=== PATIENT | female | born 1995 | race Caucasian/White ===

== ENCOUNTER 2016-05-04 23:25 | Emergency (ER) | payer BC ==
[~2016-05-04] VITALS: Ht 160 cm; Wt 70.1 kg
[~2016-05-04 23:25] MED LIST: BCPILLS PO; METH10CA5 PO; NITR-5 PO
[2016-05-04 23:28] VITALS: BP 105/67; PULSE 110; TEMP 37.1; O2SAT 98; Ht 160 cm; Wt 70.1 kg
[2016-05-04] MEDS ORDERED: PENICILLIN HOME PACK 250MG (4)BTL PO ONE (23:45)
[2016-05-04] MEDS ORDERED: PENI500T2 PO (23:46)
[2016-05-04] MEDS ORDERED: METH1TAB15 PO (23:57)
[2016-05-04] MEDS ORDERED: MULT-506 PO (23:57)
--- NOTE | 2016-05-05 04:51 | EMERGENCY ROOM VISIT NOTE ---
History First contact with patient: 23:35 Chief Complaint: ILLNESS Stated Complaint: PAINFUL SWALLOWING,LABORED BREATHING,FEVER History of Present Illness The patient is a 20 year old female who presents to the Emergency Room with complaints of sore throat, fever and bodyaches for the past day. No temperature was taken. Patient denies chest pain, dyspnea, neck stiffness, earache, vomiting, diarrhea. No recent antibiotics. She is a nanny. Review of Systems See HPI for pertinent positives & negatives. A total of 10 systems reviewed and were otherwise negative. Past Medical/Surgical History none Social History Smoking Status: Never Smoker Smokeless Tobacco Use: No Alcohol Use: none Drug Use: none Current/Historical Medications Scheduled Methylphenidate Hcl (Methylphenidate Hcl Er), 20 MG PO DAILY Multivitamin (Multivitamin), 1 TAB PO DAILY Penicillin V Potassium (Veetids), 500 MG PO TID Allergies Coded Allergies: Nickel (Verified Allergy, Mild, HIVES, 05/04/16) Uncoded Allergies: CATS (Allergy, Intermediate, DIFFICULTY BREATHING, 03/13/14) Physical Exam Vital Signs Date Time Temp Pulse Resp B/P Pulse Ox O2 Delivery O2 Flow Rate FiO2 05/04/16 23:28 37.1 110 16 105/67 98 Room Air Pain Rating (0-10): 5.0 Physical Exam VITALS: Vitals are noted on the nurse's note and reviewed by myself. Vital signs stable. GENERAL: Pleasant female, in no acute distress, nondiaphoretic, well-developed well-nourished. SKIN: The skin was without rashes, erythema, edema, or bruising. There is no tenting of the skin. Capillary reflex less than 2 seconds. HEAD: Normocephalic atraumatic. EARS: External auditory canals clear, tympanic membranes pearly lobato without erythema or effusion bilaterally. EYES: Pupils equal round and reactive to light and accommodation. Conjunctivae without injection, sclerae without icterus. Extraocular movements intact. NOSE: Patent, turbinates without inflammation or discharge. No sinus tenderness. MOUTH: Mucous membranes moist. Tonsils are enlarged. Pharynx with erythema and exudate. Uvula midline. Airway patent. Tongue does not deviate. NECK: Supple without nuchal rigidity. Submandibular lymphadenopathy. No thyromegaly. Cervical spine is nontender. No JVD. HEART: Regular rate and rhythm without murmurs gallops or rubs. LUNGS: Clear to auscultation bilaterally without wheezes, rales or rhonchi. No dullness to percussion. No retractions or accessory muscle use. ABDOMEN: Positive bowel sounds x 4. Normal tympanic percussion. Soft, nontender, without masses or organomegaly. Jansen sign negative. No guarding or rebound tenderness. MUSCULOSKELETAL: No muscle atrophy, erythema, or edema noted. NEURO: Patient was alert and oriented to person place and time. Normal sensation to light and sharp touch. No focal neurological deficits. Medical Decision & Procedures Laboratory Results Date/Time Source Procedure Growth Status 05/04/16 00:00 Throat Group A Streptococcus Screen - Final SPECIMEN POSITIVE FOR GROUP A BETA ST... Complete 05/04/16 00:00 Throat Group A Streptococcus Screen (RUI) - Final Complete Medications Administered Medications (Trade) Dose Ordered Sig/Beto Route Start Time Stop Time Status Last Admin Dose Admin Penicillin V Potassium (Pen-Vk 250MG Home Pack) 1 homepack UD ONCE PO 05/04/16 23:45 05/04/16 23:46 DC 05/04/16 23:57 1 HOMEPACK ED Course Prior records/ancillary studies reviewed. Triage Nursing notes reviewed. Additional history obtained from family The patient's history was concerning for a sore throat. Differential diagnosis: Etiologies such as viral syndrome, tonsillitis, streptococcal pharyngitis, mononucleosis, peritonsillar abscess, retropharyngeal abscess, otitis, pneumonia , influenza, as well as others were entertained. ER treatment provided: Penicillin On reassessment the patient felt better. Diagnostics interpreted by me: The labs revealed positive strep test This appears to be consistent with strep pharyngitis. Patient was started on penicillin. She is advised to change her toothbrush in 48 hours. She is advised to avoid being around kids or other immunocompromised people until 24 hours fever free and after being 48 hours on antibiotics. She is advised to follow-up family care in a few days or here in the ER sooner for high fevers, lethargy, neck stiffness, worsening signs or symptoms or as needed. Patient no signs of meningitis. She is well-appearing. No signs of abscess on clinical exam. By the evaluation outlined above emergent etiologies such as peritonsillar abscess, retropharyngeal abscess, otitis, pneumonia, meningitis, urinary tract infection, sepsis, bacteremia, as well as others were deemed relatively unlikely. The pt informed about the findings as listed above. All questions were answered and pleased with the treatment. Return instructions were outlined and the patient was discharged in stable condition. Outpatient prescription management: Penicillin Referral: The patient was referred back to their primary care physician for follow-up in 2 to 3 days for a recheck of the current condition. Medical Decision As above Impression Primary Impression: Strep pharyngitis Departure Information Dispostion Home / Self-Care Condition GOOD Prescriptions Penicillin V Potassium (VEETIDS) 500 Mg Tab 500 MG PO TID for 10 Days, #30 TAB Prov: Darlene Gutierrez ., LESLIE 05/04/16 Forms WORK / SCHOOL INSTRUCTIONS, HOME CARE DOCUMENTATION FORM, IMPORTANT VISIT INFORMATION Patient Instructions Strep Throat, [facility] Additional Instructions Penicillin 500 m tablet 3 times a day for 10 days.Any medication can cause an allergic reaction, stop the pills immediately and return to the ER for rash, hives, breathing difficulties, or swelling. Acetaminophen(Tylenol) may be used for fever or pain. Use 1000mg every six hours as needed. Avoid using more than 3000mg in a 24 hour period. (AND/OR) Ibuprofen(Motrin, Advil) may be used for fever or pain. Use 600mg every six hours as needed. Take with food. Avoid using more than 2400mg in a 24 hour period. Do not use 2400mg per day for more than three consecutive days without physician direction. Prolonged inappropriate use can lead to stomach upset or ulcers. Afrin nasal spray: 2-3 sprays to each nostril twice daily as needed for congestion. Do not use for more than 3-4 days because it can lead to worsening rebound congestion. Pseudoephedrine(Sudaphed): 30-60mg every 6 hours as needed for nasal congestion. Do not take this with other stimulant products or supplements. Rest and drink plenty of fluids. Controlling your fever with Tylenol and Ibuprofen as above will make you feel better. Wash your hands after nose blowing, sneezing, or coughing. Most germs are spread through contact, therefore improper hygiene may result in your close contacts and loved ones becoming ill just like you. Continue current medications. Return to the ER for severe headache, neck stiffness, chest pain, difficulty breathing, fevers, vomiting, worsening of your condition, or as needed. Follow up with your primary physician this week for a recheck of your current condition.
== END 2016-05-04 23:58 | disposition home or self-care (01) ==
LOC: C.EDB 23:26 → C.EDC 23:58
DX: J02.0 Streptococcal pharyngitis (principal)

== ENCOUNTER 2017-06-04 00:18 | Emergency (ER) | payer BC, OTHER ==
[~2017-06-04] VITALS: Ht 160 cm; Wt 70.5 kg
[~2017-06-04 00:18] MED LIST changes: -BCPILLS PO; -METH10CA5 PO; +METH1TAB15 PO; +MULT-506 PO; -NITR-5 PO
[2017-06-04 00:31] VITALS: TEMP 36.7; Ht 160 cm; Wt 70.5 kg
[2017-06-04] MEDS ORDERED: OXYCODONE HCL IR 5 MG TAB (IMMEDIATE RELEASE) PO STA (00:44)
--- NOTE | 2017-06-04 00:50 | EMERGENCY ROOM VISIT NOTE ---
History Report prepared by Guillermo: Coretta Shin Under the Supervision of: Dr. Andry Julien M.D. First contact with patient: 00:34 Chief Complaint: BACK PAIN Stated Complaint: BACK PAIN FROM FALL ON ICY STAIRS History of Present Illness The patient is a 21 year old female who presents to the Emergency Room with complaints of constant back pain beginning a couple hours ago. The patient states she fell down icy stairs and hit her lower back a couple hours ago. She reports her pain shoots to her hips. She reports increased pain with walking and sitting. The patient took ibuprofen with minimal relief. She denies hitting her head, loss of consciousness, or loss of bowels/urine. The patient denies any chance of . Source of History: patient Onset: a couple hours ago Position: back (lower) Quality: other (radiates to hips) Timing: constant Modifying Factors (Worsening): other (walking/sitting) Associated Symptoms: + back pain, No LOC Review of Systems See HPI for pertinent positives & negatives. A total of 6 systems reviewed and were otherwise negative. Family History Patient reports no known family medical history. Social History Smoking Status: Never Smoker Alcohol Use: none Drug Use: none Current/Historical Medications Scheduled Methylphenidate Hcl (Methylphenidate Hcl Er), 20 MG PO DAILY Multivitamin (Multivitamin), 1 TAB PO DAILY Scheduled PRN Cyclobenzaprine Hcl (Flexeril), 10 MG PO TID PRN for Muscle Spasms Allergies Coded Allergies: Nickel (Verified Allergy, Mild, HIVES, 05/04/16) Uncoded Allergies: CATS (Allergy, Intermediate, DIFFICULTY BREATHING, 03/13/14) Physical Exam Vital Signs Date Time Temp Pulse Resp B/P (MAP) Pulse Ox O2 Delivery O2 Flow Rate FiO2 06/04/17 01:33 89 20 117/85 100 06/04/17 00:31 36.7 94 20 103/53 100 Room Air Physical Exam GENERAL: Patient is well appearing and in no acute distress. NECK: No stridor, no adenopathy, no meningismus, trachea is midline. LUNGS: No dyspnea. Clear to auscultation and equal bilaterally. No wheeze, no rhonchi. HEART: Regular rate and rhythm. No murmurs, rubs, gallops appreciated. ABDOMEN: Soft, nontender, bowel sounds positive, no masses appreciated, no peritonitis. BACK: Tenderness to palpation of mid lumbar spine, no stepoffs. No CVA tenderness EXTREMITIES: Normal motion all extremities, no cyanosis, no edema. NEUROLOGIC: Alert and oriented, no acute motor or sensory deficits, no focal weakness, cranial nerves grossly intact. SKIN: No rash, no jaundice, no diaphoresis. Medical Decision & Procedures ER Provider Diagnostic Interpretation: Radiology results and stated below per my review Five view lumbar spine: straightening of lumbar lordosis, no fracture or dislocation appreciated. Medications Administered Medications (Trade) Dose Ordered Sig/Beto Route Start Time Stop Time Status Last Admin Dose Admin Oxycodone HCl (Roxicodone Immediate Rel Tab) 5 mg NOW STAT PO 06/04/17 00:44 06/04/17 00:51 DC 06/04/17 00:55 5 MG Oxycodone HCl (Roxicodone Immediate Rel 5MG Home Pack) 1 homepack UD ONCE PO 06/04/17 01:15 06/04/17 01:16 DC 06/04/17 01:31 1 HOMEPACK ED Course 0040: The patient was evaluated in room B3B. A complete history and physical exam was performed. 0113: I updated the patient on her test results. She is comfortable with discharge. 0128: Reevaluated the patient. Discussed results and discharge instructions: She verbalized understanding and agreement. The patient is ready for discharge. Medical Decision Differential: Musculoskeletal, Disc Herniation, Fracture, Cord Compression, Sciatica, Cauda Equina, amongst other pathologies entertained. 21 yr old female arrives with acute low back pain s/p fall on ice. No other injuries. Neuro intact and able to walk. Lumbar imaging with some lumbar straightening but no acute fractures/etc. She looks well otherwise. Limited Oxy IR to go for acute pain and will give Flexeril Rx if need be for continued discomfort. Risks/restrictions of these medications reviewed with her. Discussed symptoms requiring return and to follow with PCP. Medication Reconcilliation Current Medication List: was personally reviewed by me Blood Pressure Screening Patient's blood pressure: Normal blood pressure Impression Primary Impression: Acute lumbar back pain Additional Impression: Injury of low back Scribe Attestation The scribe's documentation has been prepared under my direction and personally reviewed by me in its entirety. I confirm that the note above accurately reflects all work, treatment, procedures, and medical decision making performed by me. Departure Information Dispostion Home / Self-Care Prescriptions Cyclobenzaprine Hcl (FLEXERIL) 10 Mg Tab 10 MG PO TID Y for Muscle Spasms, #21 TAB Prov: Andry Julien M.D. 06/04/17 Referrals Coco Roth DO (PCP) Forms HOME CARE DOCUMENTATION FORM, IMPORTANT VISIT INFORMATION Patient Instructions ED Low Back Pain Injury, My [facility] Additional Instructions You have received a narcotic pain medication. These medications may cause drowsiness and should not be used with other sedative medications. Do not drive , drink alcohol, perform dangerous activities, nor make important decisions after taking these medications. [facility] use or inappropriate use may lead to addiction. Problem Qualifiers
[2017-06-04] MEDS ORDERED: OXYCODONE IR HOME PACK PO ONE (01:15)
[2017-06-04] MEDS ORDERED: CYCL10TA6 PO (01:16)
[2017-06-04 01:33] VITALS: BP 117/85; PULSE 89; O2SAT 100
--- NOTE | 2017-06-04 06:31 | DIAGNOSTIC IMAGING REPORT ---
L-SPINE MIN 4 VIEWS ROUTINE CLINICAL HISTORY: Lumbar spine pain status post trauma COMPARISON STUDY: No previous studies for comparison. FINDINGS: No fractures or subluxations are visualized. There is a minimal spinal curvature. IMPRESSION: No fractures or subluxations identified. Electronically signed by: Zach Benjamin M.D. 06/04/2017 6:30 AM Dictated Date/Time: 06/04/2017 6:29 AM
== END 2017-06-04 01:35 | disposition home or self-care (01) ==
LOC: C.EDB 00:19
DX: S39.92XA Unspecified injury of lower back, initial encounter (principal); W00.1XXA Fall from stairs and steps due to ice and snow, initial encounter; Z91.048 Other nonmedicinal substance allergy status

== ENCOUNTER 2023-03-20 07:50 | Inpatient (IN) ==
--- NOTE | 2023-03-20 08:06 | History & Physical Report ---
Date of Service March 20, 2023 Assessment & Plan (1) Dichorionic diamniotic twin : (2) Encounter for induction of labor: Plan Twin di/di at 38 weeks here for IOL Pitocin AROM when able Epidural when requested Double setting reviewed check BSG Q 4h Admission and Anticipated Discharge Date Admission Date: March 20, 2023 History of Present Illness Primary Care Provider: GEORGI PCP 27 y/o weeks NINI: 04/03/22. Here for induction of labor. Complications with this include twin di/di. GDN on insulin, RH- . Germania received at 10/2Has been attending OB appointments regularly. Currently taking no medications. GBS, Rubella immune, BTG: O neg Contractions: none. Fluid or Blood loss: none Movement: active FHR baseline 130, moderate variability, accelerations present, decelerations absent Lab Results OB Labs: Blood Type O Negative 03/02/18 Antibody Screen NEGATIVE 03/02/18 Hemoglobin 11.4 g/dl (12.0-16.0) L 02/22/23 Hematocrit 32.3 % (37.0-47.0) L 02/22/23 Mean Corpuscular Volume 91.2 fL (80.0-100.0) 02/22/23 Platelet Count 229 K/uL (130-400) 02/22/23 OB Optional Labs: No Data to Display Labs Reviewed: Initial OB Labs 08/14/2022 Blood Type & RH o neg - 09/10/2020 Antibody Screen negative HCT/HGB 12.4/37.5 Platelets 337 Hep C IgG 13yrs+ Old NEGATIVE Pap Test 05/2020 Chlamydia NEGATIVE Gonorrhea negative Rubella immune RPR non reactive Urine Culture/[id number] organisms/mL. mixed bacterial species. HBsAg negative HIV negative MCV 86.8 Ultrasound06/27/22 Allergies Allergy/AdvReac Type Severity Reaction Status Date / Time nickel Allergy Mild HIVES Verified 03/19/23 10:39 cat dander Allergy Difficulty Verified 03/20/23 11:24 Breathing Home Medications Medication Instructions Recorded Confirmed Type doxylamine succinate 25 mg tablet 25 mg PO HS nausea 01/02/23 03/20/23 History (Unisom (doxylamine)) [id number] 1 tab PO DAILY 01/02/23 03/20/23 History [] pyridoxine (vitamin B6) 25 mg 25 mg PO DAILY 01/02/23 03/19/23 History tablet insulin aspart U-100 100 unit/mL See Rx Instructions .Route 01/14/23 03/20/23 Rx (3 mL) subcutaneous pen (Novolog .COMPLEX #30 mL FlexPen U-100 Insulin aspart) aspirin 81 mg tablet,delayed 81 mg PO DAILY 02/22/23 03/20/23 History release ferrous sulfate 325 mg (65 mg 325 mg PO DAILY 02/22/23 03/20/23 History iron) tablet insulin detemir U-100 100 unit/mL 42 unit subcut HS 02/22/23 03/20/23 History (3 mL) subcutaneous pen insulin detemir U-100 100 unit/mL 34 unit subcut QAM 02/22/23 03/20/23 History (3 mL) subcutaneous pen (Levemir FlexPen) magnesium oxide 400 mg PO HS 02/22/23 03/20/23 History Past Med/Surg History Medical History Varicella vaccine GERD (gastroesophageal reflux disease) IBS (irritable bowel syndrome) Encounter for anatomic survey ADHD SANDRO (generalized anxiety disorder) Surgical History S/P wisdom tooth extraction Hx of tonsillectomy Family History Mother Colorectal cancer diagnosed at 44 Hypertension Brother Brain cancer Grandmother (Maternal) Stroke Other Diabetes Denies family history of Ovarian cancer Breast cancer Social History Smoking Status: Never smoker Second Hand Exposure: No; Do You Dip or Chew Tobacco: No; Hx Alcohol Use: No Hx Substance Use: No Preferred Language: Welsh Communication Ability: Effective Visual Impairment: No Limitations Hearing Ability: Normal Emergency Planning And Response Manager Required: No Beliefs That Will Affect Care: None marital status: marital status details: Vic 31 [phone] Current Living Situation: Spouse and Family Current Living Situation Comment: Pt lives with her parents, (Vic) and 1.5 year-old daughter (Laura) current occupational status: unemployed current occupation: Homemaker Other Information That Helps Us Care for You: No Feels Safe at Home: Yes Safety Concerns: Feels Safe At This Time Diet: low carbohydrate and regular Diet Comment: Gestational Diabetes Gender Identity: Female Assistive Devices: Glasses Review of Systems Review of Systems: All systems reviewed & are unremarkable except as noted in HPI & below Physical Exam Physical Exam: General: patient resting comfortably, NAD, non-toxic in appearance, AA&O x 4, answers questions appropriately. Skin: warm, dry, intact Heart: +S1/S2, regular, no m/r/g Lungs: equal air entry bilaterally, no rales/rhonchi/wheezes Abd: +BS, soft, NT/ND, uterine fundus firm at umbilicus Neuro: nonfocal, patient AA&O x 4, speech intact, no facial droop, moving all extremities on command. Genitourinary: OB Exam Abdomen: + vertex (vtx/vtx confirmed by ultrasound today), + estimated weight (6 pounds each) and + irregular contractions Manual OB Exam: + cervical dilation 4 cm, + cervical effacement 80% and + station -1 OB Exam Monitor Tracing: + external FHT monitor used, + external uterine monitor used, + category I and + normal FHT variability Supervising Physician Co-Signing Physician Notes Resident Physician Supervision Note: I interviewed and examined the patient. Discussed with Dr. Marcelino Salamanca and agree with findings and plan as documented in the note. Any exceptions or clarifications are listed here: 27yo @ 38 0/7, di/di twins, GDM on insulin, Rh negative. Desires vaginal delivery - induction of labor for twins. We have discussed the plan for delivery - double set-up in OR, with intention of attempting vaginal delivery, as both babies are cephalic. We discussed the possibility of the need for an emergent section of Baby B, patient is agreeable with this is the need arises. Questions answered. Documented By: ASUNCION Hernandez DO Resident Activity Tracking Resident Involvement: Resident Care Provided Care Provided: OB Delivery (1) Dichorionic diamniotic twin Trimester: third trimester Qualified Code(s): O30.043 - Twin , dichorionic/diamniotic, third trimester
[2023-03-20] MEDS ORDERED: DEXTROSE 5% 1,000 ML IV PRN (08:09)
[2023-03-20] MEDS ORDERED: LIDOCAINE 1% LOCAL 20 ML VIAL INFIL PRN (08:09)
[2023-03-20] MEDS ORDERED: OXYTOCIN 30 UNITS/NSS 30 UNITS/500 ML BAG IV PRN ×2 (08:09)
[2023-03-20] MEDS ORDERED: INSULIN REGULAR 250 UNITS in SODIUM CHLORIDE 0.9% 247.5 ML IV PRN (08:09)
[2023-03-20] MEDS ORDERED: SODIUM CHLORIDE 0.9% 1,000 ML IV PRN (08:09)
[2023-03-20] MEDS ORDERED: DEXTROSE 50% 50 ML SYRINGE IV PRN (08:09)
[2023-03-20] MEDS: LACTATED RINGER'S 1,000 ML IV PRN ×4 (08:55→22:28)
[2023-03-20 09:02] LABS: Hematocrit (blood only) 36.4 % (37.0-47.0); Hemoglobin 12.8 g/dl (12.0-16.0); Mean Corpuscular Hemoglobin 32.2 pg (25.0-34.0); Mean Corpuscular Hgb Conc 35.2 g/dL (32.0-36.0); Mean Corpuscular Volume 91.7 fL (80.0-100.0); Mean Platelet Volume 9.3 fL (9.4-12.4); Platelet Count 199 K/uL (130-400); RDW Coefficient of Variation 14.2 % (11.5-14.5); RDW Standard Deviation 47.8 fL (36.4-46.3); Red Blood Count 3.97 M/uL (4.20-5.40); White Blood Count 9.03 K/ul (4.8-10.8)
--- NOTE | 2023-03-20 09:25 | Labor Progress Brief Note ---
Date of Service March 20, 2023 Subjective Reason For Note: Other Current Pain Level(1-10): 0 AROM for clear fluid pitocin induction begun per unit protocol epidural analgesia when requested anticipate vaginal births Assessment & Plan Admission and Anticipated Discharge Date Admission Date: March 20, 2023 Results & Data Vital Signs (Past 12 Hours) Vital Signs Temp Pulse Resp BP O2 Del Method 03/20/23 08:14 97.9 F 18 Room Air 03/20/23 08:03 111 H 124/79
[2023-03-20] MEDS ORDERED: ePHEDrine sulfate 50 MG/ML AMP ONE (12:22)
[2023-03-20] MEDS ORDERED: SODIUM CHLORIDE 0.9% PF INJ 10 ML VIAL ONE (12:22)
[2023-03-20] MEDS ORDERED: fentaNYL citrate PF 100 MCG/2 ML VIAL ONE (12:22)
[2023-03-20] MEDS ORDERED: LIDOCAINE 2%/EPINEPHRINE 1:200,000 20 ML PF ONE (12:23)
[2023-03-20] MEDS ORDERED: BUPIVACAINE 0.25% PF 30 ML VIAL ONE (12:23)
[2023-03-20] MEDS ORDERED: fentANYL 2 MCG/ML BUPIVacaine 0.125%-NSS 100ML BAG ONE (12:23)
[2023-03-20] MEDS ORDERED: fentaNYL citrate PF 100 MCG/2 ML VIAL EPI PRN (12:25)
[2023-03-20] MEDS ORDERED: diphenhydrAMINE 50 MG/ML VIAL IV PRN (12:25)
[2023-03-20] MEDS ORDERED: ePHEDrine sulfate 50 MG/ML AMP IV PRN (12:25)
[2023-03-20] MEDS ORDERED: LIDOCAINE 2%/EPINEPHRINE 1:200,000 20 ML PF EPI STA (12:25)
[2023-03-20] MEDS ORDERED: fentaNYL citrate PF 100 MCG/2 ML VIAL EPI STA (12:25)
[2023-03-20] MEDS ORDERED: LIDOCAINE 2% MPF LOCAL 5 ML VIAL EPI PRN (12:25)
[2023-03-20] MEDS ORDERED: NALOXONE HCL 0.4 MG/1 ML VIAL/CARP IV PRN (12:25)
[2023-03-20] MEDS ORDERED: NALBUPHINE HCL 5 MG in SYRINGE 0 ML IV PRN (12:25)
[2023-03-20] MEDS ORDERED: BUPIVACAINE 0.25% PF 30 ML VIAL EPI PRN (12:25)
[2023-03-20] MEDS ORDERED: BUPIVACAINE 0.25% PF 30 ML VIAL EPI STA (12:25)
[2023-03-20] MEDS ORDERED: NALOXONE HCL 1 MG in SODIUM CHLORIDE 0.9% 1,000 ML IV PRN (12:25)
[2023-03-20] MEDS ORDERED: SODIUM CHLORIDE 0.9% PF INJ 10 ML VIAL EPI PRN (12:25)
[2023-03-20] MEDS ORDERED: SODIUM CHLORIDE 0.9% PF INJ 10 ML VIAL EPI STA (12:25)
[2023-03-20] MEDS ORDERED: ROPIVACAINE 0.5% PF 5 MG/ML 20 ML VIAL EPI PRN (12:25)
--- NOTE | 2023-03-20 12:28 | Anesthesiology Consultation ---
Date of Service March 20, 2023 Assessment & Plan Chart Review Chart Review: Acceptable Risk for Labor Epidural Consults Requested none History Height/Weight Height: 5 ft 3 in Weight: 98.883 kg Allergies Allergy/AdvReac Type Severity Reaction Status Date / Time nickel Allergy Mild HIVES Verified 03/19/23 10:39 cat dander Allergy Difficulty Verified 03/20/23 11:24 Breathing Medications Home Medications Medication Instructions Recorded Confirmed Last Taken doxylamine succinate 25 mg tablet 25 mg PO HS nausea 01/02/23 03/20/23 03/19/23 (Unisom (doxylamine)) [id number] 1 tab PO DAILY 01/02/23 03/20/23 03/19/23 23:00 [] pyridoxine (vitamin B6) 25 mg 25 mg PO DAILY 01/02/23 03/19/23 03/04/23 23:00 tablet insulin aspart U-100 100 unit/mL See Rx Instructions .Route 01/14/23 03/20/23 03/20/23 07:00 (3 mL) subcutaneous pen (Novolog .COMPLEX #30 mL 24 units FlexPen U-100 Insulin aspart) aspirin 81 mg tablet,delayed 81 mg PO DAILY 02/22/23 03/20/23 03/19/23 23:00 release ferrous sulfate 325 mg (65 mg 325 mg PO DAILY 02/22/23 03/20/23 03/19/23 23:00 iron) tablet insulin detemir U-100 100 unit/mL 42 unit subcut HS 02/22/23 03/20/23 03/19/23 23:00 (3 mL) subcutaneous pen insulin detemir U-100 100 unit/mL 34 unit subcut QAM 02/22/23 03/20/23 03/19/23 09:30 (3 mL) subcutaneous pen (Levemir 38 units FlexPen) magnesium oxide 400 mg PO HS 02/22/23 03/20/23 03/19/23 23:00 Active Medications Generic Name Dose Route Start Last Admin Trade Name Freq PRN Reason Stop Dose Admin Oxytocin 30 units in 500 mls @ 13 mls/hr 03/20/23 08:09 03/20/23 12:15 Pitocin 30 Units/Nss IV 03/22/23 08:08 0.78 units/hr .Q24H PRN 13 mls/hr Labor Induction/Augmentation Titration Protocol 0.78 UNITS/HR Lactated Ringer's 1,000 mls @ 125 mls/hr 03/20/23 08:09 03/20/23 12:19 Lr IV 03/22/23 08:08 999 mls/hr .Q8H PRN Infusion L&D Protocol Protocol Past Medical History Medical History Varicella vaccine GERD (gastroesophageal reflux disease) IBS (irritable bowel syndrome) Encounter for anatomic survey ADHD SANDRO (generalized anxiety disorder) Past Family History Family History Mother Colorectal cancer diagnosed at 44 Hypertension Brother Brain cancer Grandmother (Maternal) Stroke Other Diabetes Denies family history of Ovarian cancer Breast cancer Past Surgical History Surgical History S/P wisdom tooth extraction Hx of tonsillectomy Social History Smoking Status: Never smoker Do You Dip or Chew Tobacco: No Hx Alcohol Use: No Hx Substance Use: No substance use type: does not use Physical Exam Vital Signs Last Vital Signs Temp 36.8 C 03/20/23 11:00 Pulse 86 03/20/23 12:04 Resp 16 03/20/23 11:30 BP 119/65 03/20/23 12:04 O2 Del Method Room Air 03/20/23 08:14 Genitourinary OB Exam Abdomen: + vertex (vtx/vtx confirmed by ultrasound today), + estimated weight (6 pounds each) and + irregular contractions Manual OB Exam: + cervical dilation + 4 cm, + cervical effacement + 80% and + station + -1 OB Exam Monitor Tracing: + external FHT monitor used, + external uterine monitor used, + category I and + normal FHT variability Testing Laboratory Results 03/20/23 08:37 Blood Type O Negative 03/20/23 08:37 Antibody Screen NEGATIVE 03/20/23 08:37 03/20/23 03/20/23 09:06 09:00 POC Glucose 91 100 H
[2023-03-20] MEDS: fentANYL 2 MCG/ML BUPIVacaine 0.125%-NSS 100ML BAG EPI PRN (19:11)
--- NOTE | 2023-03-20 20:11 | Labor Progress Brief Note ---
Date of Service March 20, 2023 Subjective Labor continues. Comfortable with epidural. FHT Cat 1 of both babies. Ctx pattern have improved to 2-3min at this point, pitocin at 25. SVE 7-8/90/-1. Feeling more pressure, no urge to push at this time. Assessment & Plan Admission and Anticipated Discharge Date Admission Date: March 20, 2023 Results & Data Vital Signs (Past 12 Hours) Vital Signs Temp Pulse Resp BP Pulse Ox O2 Del Method 03/20/23 20:08 100 H 98 03/20/23 20:03 97 03/20/23 20:03 107 H 03/20/23 20:03 106 H 101/57 L 03/20/23 19:58 99 H 98 03/20/23 19:53 112 H 98 03/20/23 19:48 110 H 125/68 97 03/20/23 19:43 108 H 97 03/20/23 19:38 115 H 97 03/20/23 19:33 104 H 96 03/20/23 19:32 111 H 113/67 03/20/23 19:28 114 H 97 03/20/23 19:23 106 H 97 03/20/23 19:19 115 H 117/64 03/20/23 19:18 112 H 97 03/20/23 19:13 110 H 97 03/20/23 19:08 115 H 97 03/20/23 19:03 106 H 97 03/20/23 19:02 102 H 132/61 03/20/23 19:00 18 03/20/23 19:00 18 03/20/23 18:58 103 H 97 03/20/23 18:53 116 H 96 03/20/23 18:48 108 H 97 03/20/23 18:47 112 H 134/70 03/20/23 18:43 115 H 97 03/20/23 18:38 115 H 97 03/20/23 18:33 97 03/20/23 18:33 116 H 03/20/23 18:33 109 H 135/67 91 03/20/23 18:30 18 03/20/23 18:30 18 03/20/23 18:28 111 H 97 03/20/23 18:23 110 H 97 03/20/23 18:18 97 03/20/23 18:18 113 H 03/20/23 18:18 110 H 127/64 03/20/23 18:17 110 H 126/66 03/20/23 18:13 112 H 97 03/20/23 18:08 106 H 97 03/20/23 18:03 107 H 99 03/20/23 18:02 98 H 122/70 03/20/23 18:00 16 03/20/23 18:00 16 03/20/23 17:58 103 H 97 03/20/23 17:53 108 H 98 03/20/23 17:48 98 03/20/23 17:48 100 H 03/20/23 17:48 104 H 119/66 03/20/23 17:43 107 H 96 03/20/23 17:38 104 H 99 03/20/23 17:33 99 H 117/67 98 03/20/23 17:30 18 03/20/23 17:30 18 03/20/23 17:28 103 H 98 03/20/23 17:23 105 H 98 03/20/23 17:18 97 H 97 03/20/23 17:17 102 H 119/67 03/20/23 17:13 98 H 97 03/20/23 17:08 93 H 98 03/20/23 17:03 97 H 98 03/20/23 17:02 95 H 115/67 03/20/23 17:00 18 03/20/23 17:00 36.8 C 18 03/20/23 17:00 18 03/20/23 17:00 36.8 C 18 03/20/23 16:58 97 H 98 03/20/23 16:53 102 H 98 03/20/23 16:48 93 H 99 03/20/23 16:47 98 H 118/69 03/20/23 16:43 95 H 100 03/20/23 16:38 106 H 100 03/20/23 16:33 100 03/20/23 16:33 92 H 03/20/23 16:33 108 H 129/65 03/20/23 16:30 16 03/20/23 16:30 16 03/20/23 16:28 102 H 100 03/20/23 16:23 98 H 100 03/20/23 16:18 85 100 03/20/23 16:17 99 H 112/62 03/20/23 16:13 96 H 100 03/20/23 16:08 86 100 03/20/23 16:03 92 H 100 03/20/23 16:02 93 H 113/60 03/20/23 16:00 18 03/20/23 16:00 18 03/20/23 15:58 100 H 100 03/20/23 15:53 89 100 03/20/23 15:48 100 03/20/23 15:48 88 03/20/23 15:48 90 110/59 L 03/20/23 15:43 36.6 C 101 H 18 100 03/20/23 15:38 90 100 03/20/23 15:33 83 100 03/20/23 15:32 90 105/61 03/20/23 15:30 82 18 106/58 L 03/20/23 15:28 100 03/20/23 15:28 86 03/20/23 15:28 87 109/59 L 03/20/23 15:26 93 H 103/57 L 03/20/23 15:24 88 99/51 L 03/20/23 15:23 84 100 03/20/23 15:22 104 H 03/20/23 15:22 87 104/51 L 90 03/20/23 15:20 93 H 112/57 L 03/20/23 15:18 109 H 116/56 L 100 03/20/23 15:16 112 H 118/59 L 03/20/23 15:14 100 H 118/63 03/20/23 15:13 98 H 100 03/20/23 15:12 97 H 109/57 L 03/20/23 15:10 101 H 117/61 03/20/23 15:08 102 H 114/59 L 100 03/20/23 15:06 90 112/55 L 03/20/23 15:04 96 H 114/58 L 03/20/23 15:03 92 H 100 03/20/23 15:02 114 H 112/63 03/20/23 15:00 110 H 18 121/70 03/20/23 14:58 100 03/20/23 14:58 95 H 03/20/23 14:58 87 118/62 03/20/23 14:56 100 H 118/62 03/20/23 14:54 93 H 115/59 L 03/20/23 14:53 92 H 100 03/20/23 14:52 100 H 112/55 L 03/20/23 14:50 96 H 118/61 03/20/23 14:48 100 03/20/23 14:48 91 H 03/20/23 14:48 101 H 119/62 03/20/23 14:46 102 H 122/60 03/20/23 14:44 97 H 117/62 03/20/23 14:43 102 H 100 03/20/23 14:42 100 H 113/60 03/20/23 14:40 99 H 112/59 L 03/20/23 14:38 96 H 116/61 100 03/20/23 14:36 105 H 116/63 03/20/23 14:34 100 H 111/58 L 03/20/23 14:33 99 H 100 03/20/23 14:32 103 H 107/57 L 03/20/23 14:30 100 H 18 104/58 L 03/20/23 14:28 100 03/20/23 14:28 93 H 03/20/23 14:28 107 H 102/58 L 03/20/23 14:26 102 H 106/58 L 03/20/23 14:24 102 H 108/57 L 03/20/23 14:23 103 H 100 03/20/23 14:22 86 108/58 L 03/20/23 14:20 107 H 110/55 L 03/20/23 14:18 100 03/20/23 14:18 99 H 03/20/23 14:18 101 H 114/57 L 03/20/23 14:16 103 H 112/60 03/20/23 14:14 94 H 112/56 L 03/20/23 14:13 100 H 100 03/20/23 14:12 97 H 103/57 L 03/20/23 14:10 99 H 113/56 L 03/20/23 14:08 96 H 118/56 L 100 03/20/23 14:06 105 H 92/50 L 03/20/23 14:03 93 H 97 03/20/23 14:02 101 H 93/52 L 03/20/23 13:58 100 03/20/23 13:58 100 H 03/20/23 13:58 93 H 110/58 L 03/20/23 13:55 100 H 113/65 03/20/23 13:53 95 H 98 03/20/23 13:52 98 H 104/56 L 03/20/23 13:50 78 57/29 L 03/20/23 13:48 70 98 03/20/23 13:43 99 03/20/23 13:43 111 H 03/20/23 13:43 103 H 116/62 03/20/23 13:38 96 H 98 03/20/23 13:33 100 H 97 03/20/23 13:30 16 03/20/23 13:30 16 03/20/23 13:28 108 H 99 03/20/23 13:27 88 130/73 03/20/23 13:25 36.7 C 104 H 18 129/70 03/20/23 13:23 98 03/20/23 13:23 97 H 03/20/23 13:23 108 H 132/67 03/20/23 13:21 114 H 132/61 03/20/23 13:19 96 H 133/78 03/20/23 13:18 97 H 98 03/20/23 13:17 108 H 128/68 03/20/23 13:15 101 H 139/74 03/20/23 13:13 96 H 136/75 98 03/20/23 13:11 106 H 129/78 03/20/23 13:09 102 H 129/70 03/20/23 13:08 109 H 98 03/20/23 13:07 98 H 143/67 H 03/20/23 13:06 97 H 141/65 H 03/20/23 13:03 104 H 159/82 H 99 03/20/23 13:01 92 H 119/72 03/20/23 13:00 18 03/20/23 13:00 18 03/20/23 12:59 91 H 132/83 03/20/23 12:58 88 98 03/20/23 12:57 88 135/80 03/20/23 12:55 97 H 132/63 03/20/23 12:53 99 03/20/23 12:53 85 03/20/23 12:53 90 132/75 03/20/23 12:51 88 142/85 H 03/20/23 12:49 95 H 128/83 03/20/23 12:48 86 99 03/20/23 12:47 91 H 127/81 03/20/23 12:45 90 143/83 H 03/20/23 12:43 92 H 146/83 H 100 03/20/23 12:38 95 H 99 03/20/23 12:33 90 99 03/20/23 12:30 18 03/20/23 12:30 18 03/20/23 12:04 86 119/65 03/20/23 11:30 16 03/20/23 11:30 16 03/20/23 11:03 99 H 133/72 03/20/23 11:00 18 03/20/23 11:00 18 03/20/23 11:00 18 03/20/23 11:00 36.8 C 18 03/20/23 10:30 20 03/20/23 10:30 20 03/20/23 10:18 90 133/81 03/20/23 10:00 18 03/20/23 10:00 18 03/20/23 08:14 36.6 C 18 Room Air Coding Level of Care Code None
[2023-03-20] MEDS ORDERED: SODIUM CHLORIDE 0.9% 250 ML IV PRN (21:02)
--- NOTE | 2023-03-20 23:14 | Labor Progress Brief Note ---
Date of Service March 20, 2023 Subjective Not feeling pressure or urge to push. FHT Cat 1, both babies [place] Q 2-3 SVE rim/100/0 Assessment & Plan Admission and Anticipated Discharge Date Admission Date: March 20, 2023 Results & Data Vital Signs (Past 12 Hours) Vital Signs Temp Pulse Resp BP Pulse Ox 03/20/23 23:09 110 H 85 L 03/20/23 23:08 103 H 98 03/20/23 23:03 105 H 96 03/20/23 23:02 105 H 103/54 L 03/20/23 22:58 107 H 98 03/20/23 22:53 100 H 98 03/20/23 22:48 103 H 98 03/20/23 22:47 104 H 95/50 L 03/20/23 22:43 101 H 99 03/20/23 22:38 104 H 98 03/20/23 22:34 104 H 104/52 L 03/20/23 22:33 98 03/20/23 22:33 104 H 03/20/23 22:33 102 H 103/51 L 03/20/23 22:28 120 H 97 03/20/23 22:23 106 H 98 03/20/23 22:18 97 03/20/23 22:18 104 H 03/20/23 22:18 120 H 135/66 03/20/23 22:13 109 H 98 03/20/23 22:08 97 H 97 03/20/23 22:03 102 H 96 03/20/23 22:02 107 H 118/57 L 03/20/23 21:58 119 H 96 03/20/23 21:53 100 H 99 03/20/23 21:48 114 H 97 03/20/23 21:47 112 H 120/58 L 03/20/23 21:43 108 H 98 03/20/23 21:38 116 H 99 03/20/23 21:33 121 H 98 03/20/23 21:28 121 H 99 03/20/23 21:23 101 H 96 03/20/23 21:18 102 H 113/62 97 03/20/23 21:13 95 H 96 03/20/23 21:08 99 H 98 03/20/23 21:03 98 H 98 03/20/23 21:02 101 H 118/59 L 03/20/23 21:00 18 03/20/23 21:00 36.6 C 18 03/20/23 20:58 101 H 98 03/20/23 20:53 104 H 99 03/20/23 20:49 101 H 112/56 L 03/20/23 20:48 102 H 99 03/20/23 20:43 95 H 97 03/20/23 20:38 94 H 97 03/20/23 20:34 96 H 104/58 L 03/20/23 20:33 102 H 97 03/20/23 20:28 101 H 98 03/20/23 20:23 94 H 98 03/20/23 20:19 102 H 110/60 03/20/23 20:18 100 H 97 03/20/23 20:13 100 H 97 03/20/23 20:08 100 H 98 03/20/23 20:03 97 03/20/23 20:03 107 H 03/20/23 20:03 106 H 101/57 L 03/20/23 19:58 99 H 98 03/20/23 19:53 112 H 98 03/20/23 19:48 110 H 125/68 97 03/20/23 19:43 108 H 97 03/20/23 19:38 115 H 97 03/20/23 19:33 104 H 96 03/20/23 19:32 111 H 113/67 03/20/23 19:28 114 H 97 03/20/23 19:23 106 H 97 03/20/23 19:19 115 H 117/64 03/20/23 19:18 112 H 97 03/20/23 19:13 110 H 97 03/20/23 19:08 115 H 97 03/20/23 19:05 36.6 C 18 03/20/23 19:03 106 H 97 03/20/23 19:02 36.6 C 102 H 18 132/61 03/20/23 19:00 18 03/20/23 19:00 18 03/20/23 18:58 103 H 97 03/20/23 18:53 116 H 96 03/20/23 18:48 108 H 97 03/20/23 18:47 112 H 134/70 03/20/23 18:43 115 H 97 03/20/23 18:38 115 H 97 12/22/23 18:33 97 03/20/23 18:33 116 H 03/20/23 18:33 109 H 135/67 91 03/20/23 18:30 18 03/20/23 18:30 18 03/20/23 18:28 111 H 97 03/20/23 18:23 110 H 97 03/20/23 18:18 97 03/20/23 18:18 113 H 03/20/23 18:18 110 H 127/64 03/20/23 18:17 110 H 126/66 03/20/23 18:13 112 H 97 03/20/23 18:08 106 H 97 03/20/23 18:03 107 H 99 03/20/23 18:02 98 H 122/70 03/20/23 18:00 16 03/20/23 18:00 16 03/20/23 17:58 103 H 97 03/20/23 17:53 108 H 98 03/20/23 17:48 98 03/20/23 17:48 100 H 03/20/23 17:48 104 H 119/66 03/20/23 17:43 107 H 96 03/20/23 17:38 104 H 99 03/20/23 17:33 99 H 117/67 98 03/20/23 17:30 18 03/20/23 17:30 18 03/20/23 17:28 103 H 98 03/20/23 17:23 105 H 98 03/20/23 17:18 97 H 97 03/20/23 17:17 102 H 119/67 03/20/23 17:13 98 H 97 03/20/23 17:08 93 H 98 03/20/23 17:03 97 H 98 03/20/23 17:02 95 H 115/67 03/20/23 17:00 18 03/20/23 17:00 36.8 C 18 03/20/23 17:00 18 03/20/23 17:00 36.8 C 18 03/20/23 16:58 97 H 98 03/20/23 16:53 102 H 98 03/20/23 16:48 93 H 99 03/20/23 16:47 98 H 118/69 03/20/23 16:43 95 H 100 03/20/23 16:38 106 H 100 03/20/23 16:33 100 03/20/23 16:33 92 H 12/22/23 16:33 108 H 129/65 03/20/23 16:30 16 03/20/23 16:30 16 03/20/23 16:28 102 H 100 03/20/23 16:23 98 H 100 03/20/23 16:18 85 100 03/20/23 16:17 99 H 112/62 03/20/23 16:13 96 H 100 03/20/23 16:08 86 100 03/20/23 16:03 92 H 100 03/20/23 16:02 93 H 113/60 03/20/23 16:00 18 03/20/23 16:00 18 03/20/23 15:58 100 H 100 03/20/23 15:53 89 100 03/20/23 15:48 100 03/20/23 15:48 88 03/20/23 15:48 90 110/59 L 03/20/23 15:43 36.6 C 101 H 18 100 03/20/23 15:38 90 100 03/20/23 15:33 83 100 03/20/23 15:32 90 105/61 03/20/23 15:30 82 18 106/58 L 03/20/23 15:28 100 03/20/23 15:28 86 03/20/23 15:28 87 109/59 L 03/20/23 15:26 93 H 103/57 L 03/20/23 15:24 88 99/51 L 03/20/23 15:23 84 100 03/20/23 15:22 104 H 03/20/23 15:22 87 104/51 L 90 03/20/23 15:20 93 H 112/57 L 03/20/23 15:18 109 H 116/56 L 100 03/20/23 15:16 112 H 118/59 L 03/20/23 15:14 100 H 118/63 03/20/23 15:13 98 H 100 03/20/23 15:12 97 H 109/57 L 03/20/23 15:10 101 H 117/61 03/20/23 15:08 102 H 114/59 L 100 03/20/23 15:06 90 112/55 L 03/20/23 15:04 96 H 114/58 L 03/20/23 15:03 92 H 100 03/20/23 15:02 114 H 112/63 03/20/23 15:00 110 H 18 121/70 03/20/23 14:58 100 03/20/23 14:58 95 H 03/20/23 14:58 87 118/62 03/20/23 14:56 100 H 118/62 03/20/23 14:54 93 H 115/59 L 03/20/23 14:53 92 H 100 03/20/23 14:52 100 H 112/55 L 03/20/23 14:50 96 H 118/61 03/20/23 14:48 100 03/20/23 14:48 91 H 03/20/23 14:48 101 H 119/62 03/20/23 14:46 102 H 122/60 03/20/23 14:44 97 H 117/62 03/20/23 14:43 102 H 100 03/20/23 14:42 100 H 113/60 03/20/23 14:40 99 H 112/59 L 03/20/23 14:38 96 H 116/61 100 03/20/23 14:36 105 H 116/63 03/20/23 14:34 100 H 111/58 L 03/20/23 14:33 99 H 100 03/20/23 14:32 103 H 107/57 L 03/20/23 14:30 100 H 18 104/58 L 03/20/23 14:28 100 03/20/23 14:28 93 H 03/20/23 14:28 107 H 102/58 L 03/20/23 14:26 102 H 106/58 L 03/20/23 14:24 102 H 108/57 L 03/20/23 14:23 103 H 100 03/20/23 14:22 86 108/58 L 03/20/23 14:20 107 H 110/55 L 03/20/23 14:18 100 03/20/23 14:18 99 H 03/20/23 14:18 101 H 114/57 L 03/20/23 14:16 103 H 112/60 03/20/23 14:14 94 H 112/56 L 03/20/23 14:13 100 H 100 03/20/23 14:12 97 H 103/57 L 03/20/23 14:10 99 H 113/56 L 03/20/23 14:08 96 H 118/56 L 100 03/20/23 14:06 105 H 92/50 L 03/20/23 14:03 93 H 97 03/20/23 14:02 101 H 93/52 L 03/20/23 13:58 100 03/20/23 13:58 100 H 03/20/23 13:58 93 H 110/58 L 03/20/23 13:55 100 H 113/65 03/20/23 13:53 95 H 98 03/20/23 13:52 98 H 104/56 L 03/20/23 13:50 78 57/29 L 03/20/23 13:48 70 98 03/20/23 13:43 99 03/20/23 13:43 111 H 03/20/23 13:43 103 H 116/62 03/20/23 13:38 96 H 98 03/20/23 13:33 100 H 97 03/20/23 13:30 16 03/20/23 13:30 16 03/20/23 13:28 108 H 99 03/20/23 13:27 88 130/73 03/20/23 13:25 36.7 C 104 H 18 129/70 03/20/23 13:23 98 03/20/23 13:23 97 H 03/20/23 13:23 108 H 132/67 03/20/23 13:21 114 H 132/61 03/20/23 13:19 96 H 133/78 03/20/23 13:18 97 H 98 03/20/23 13:17 108 H 128/68 03/20/23 13:15 101 H 139/74 03/20/23 13:13 96 H 136/75 98 03/20/23 13:11 106 H 129/78 03/20/23 13:09 102 H 129/70 03/20/23 13:08 109 H 98 03/20/23 13:07 98 H 143/67 H 03/20/23 13:06 97 H 141/65 H 03/20/23 13:03 104 H 159/82 H 99 03/20/23 13:01 92 H 119/72 03/20/23 13:00 18 03/20/23 13:00 18 03/20/23 12:59 91 H 132/83 03/20/23 12:58 88 98 03/20/23 12:57 88 135/80 03/20/23 12:55 97 H 132/63 03/20/23 12:53 99 03/20/23 12:53 85 03/20/23 12:53 90 132/75 03/20/23 12:51 88 142/85 H 03/20/23 12:49 95 H 128/83 03/20/23 12:48 86 99 03/20/23 12:47 91 H 127/81 03/20/23 12:45 90 143/83 H 03/20/23 12:43 92 H 146/83 H 100 03/20/23 12:38 95 H 99 03/20/23 12:33 90 99 03/20/23 12:30 18 03/20/23 12:30 18 03/20/23 12:04 86 119/65 03/20/23 11:30 16 03/20/23 11:30 16 Coding Level of Care Code None
[2023-03-21] MEDS: fentANYL 2 MCG/ML BUPIVacaine 0.125%-NSS 100ML BAG EPI PRN (00:29)
[2023-03-21] MEDS ORDERED: fentaNYL citrate PF 100 MCG/2 ML VIAL ONE (01:38)
[2023-03-21] MEDS ORDERED: OXYTOCIN 10 UNITS/ML VIAL ONE ×3 (01:46)
[2023-03-21] MEDS ORDERED: MoRPHine SULFATE PF 1 MG/ML 10 ML AMP/VIAL ONE (01:50)
[2023-03-21] MEDS ORDERED: AZITHROMYCIN 500 MG in DEXTROSE 5% 250 ML IV ONE (01:58)
[2023-03-21] MEDS ORDERED: MoRPHine SULFATE PF 1 MG/ML 10 ML AMP/VIAL EPI ONE (02:13)
[2023-03-21] MEDS ORDERED: NALBUPHINE HCL 5 MG in SYRINGE 0 ML IV PRN (02:13)
[2023-03-21] MEDS ORDERED: NALOXONE HCL 0.4 MG/1 ML VIAL/CARP IV PRN (02:13)
[2023-03-21] MEDS ORDERED: HYDROmorphone INJ 0.5 MG/0.5 ML SYR IV PRN (02:13)
[2023-03-21] MEDS ORDERED: NALOXONE HCL 0.08 MG in SYRINGE 1.8 ML IV PRN (02:13)
[2023-03-21] MEDS ORDERED: LACTATED RINGER'S 500 ML IV PRN (02:13)
[2023-03-21] MEDS ORDERED: ePHEDrine sulfate 50 MG/ML AMP IV PRN (02:13)
[2023-03-21] MEDS ORDERED: NALOXONE HCL 1 MG in SODIUM CHLORIDE 0.9% 1,000 ML IV PRN (02:13)
[2023-03-21] MEDS ORDERED: diphenhydrAMINE 50 MG/ML VIAL IV PRN ×2 (02:13→20:13)
[2023-03-21] MEDS ORDERED: NO NARCOTICS OR SEDATIVES SCH (02:15)
[2023-03-21] MEDS ORDERED: DC INTRASPINAL MORPHINE SCH (02:15)
[2023-03-21] MEDS ORDERED: SODIUM CHLORIDE 0.9% 1,000 ML IV SCH (02:15)
[2023-03-21 02:48] LABS: Base Excess Cord Venous Blood -4.4 mEq/L (-7.7-1.9); Cord Venous Blood HCO3 22 mmol/L (18.4-26.8); Cord Venous Blood PCO2 45 mmHg (30.4-57.2); Cord Venous Blood PO2 23 mmHg (14.1-43.3); O2 Saturation Cord Venous Bld < 60.0 % (<68)
[2023-03-21 02:49] LABS: Base Excess Cord Arterial Bld -5.2 mEq/L (-9-1.8); CO2 Cord Arterial Blood 46 mmHg (39.1-73.5); HCO3 Cord Arterial Blood 22 mmol/L (19.7-28.5); Oxygen Sat Cord Arterial Blood < 60.0 % (<60); PO2 Cord Arterial Blood 22 mmHg (4.1-31.7); pH Cord Arterial Blood 7.28 (7.1-7.38)
[2023-03-21] MEDS ORDERED: HYDROCORTISONE ACETATE 25 MG SUPP PR PRN (03:19)
[2023-03-21] MEDS ORDERED: SENNA 8.6 MG TAB PO PRN (03:19)
[2023-03-21] MEDS ORDERED: LACTATED RINGER'S 1,000 ML IV SCH (03:19)
[2023-03-21] MEDS ORDERED: MAGNESIUM HYDROXIDE SUSP 30 ML UDC PO PRN (03:19)
[2023-03-21] MEDS ORDERED: DIPHTHERIA/TETANUS/PERTUSSIS Vaccine (Tdap, Age 7+yrs) 0.5mL SYR/VL IM ONE (03:19)
[2023-03-21] MEDS ORDERED: BENZOCAINE 20% SPRY 85 APPLN/85 GM CAN EXT PRN (03:19)
--- NOTE | 2023-03-21 03:20 | Anesthesiology Progress Note ---
Date of Service March 21, 2023 Anesthesia Post Procedure Vital Signs Vital Signs: Temp Pulse Resp BP Pulse Ox O2 Del Method 03/21/23 03:16 90 90/53 L 03/21/23 03:15 100 03/21/23 03:15 90 03/21/23 03:15 80 91 03/21/23 01:39 123 H 97 03/21/23 01:34 129 H 95 03/21/23 01:29 109 H 96 03/21/23 01:28 113 H 127/60 03/21/23 01:27 98 H 86 L 03/21/23 01:24 117 H 97 03/21/23 01:21 113 H 90 03/21/23 01:18 127 H 98 03/21/23 01:15 103 H 88 L 03/21/23 01:13 112 H 123/76 98 03/21/23 01:08 115 H 97 03/21/23 01:05 107 H 91 03/21/23 01:03 112 H 98 03/21/23 00:38 104 H 96 03/21/23 00:33 112 H 98 03/21/23 00:32 113 H 108/51 L 03/21/23 00:28 116 H 98 03/21/23 00:23 110 H 97 03/21/23 00:18 123 H 120/59 L 96 03/21/23 00:13 115 H 97 03/21/23 00:11 104 H 94 03/21/23 00:08 119 H 96 03/21/23 00:03 107 H 121/55 L 96 03/20/23 23:58 109 H 94 03/20/23 23:57 113 H 94 03/20/23 23:53 105 H 94 03/20/23 23:49 113 H 112/53 L 03/20/23 23:48 111 H 96 03/20/23 23:45 103 H 93 03/20/23 23:43 115 H 97 03/20/23 23:38 103 H 97 03/20/23 23:33 118 H 131/66 98 03/20/23 23:28 109 H 97 03/20/23 23:23 107 H 97 03/20/23 23:18 97 03/20/23 23:18 107 H 03/20/23 23:18 104 H 102/53 L 03/20/23 23:13 104 H 97 12/22/23 23:09 110 H 85 L 03/20/23 23:08 103 H 98 03/20/23 23:03 105 H 96 03/20/23 23:02 105 H 103/54 L 03/20/23 22:58 107 H 98 03/20/23 22:53 100 H 98 03/20/23 22:48 103 H 98 03/20/23 22:47 104 H 95/50 L 03/20/23 22:43 101 H 99 03/20/23 22:38 104 H 98 03/20/23 22:34 104 H 104/52 L 03/20/23 22:33 98 03/20/23 22:33 104 H 03/20/23 22:33 102 H 103/51 L 03/20/23 22:28 120 H 97 03/20/23 22:23 106 H 98 03/20/23 22:18 97 03/20/23 22:18 104 H 03/20/23 22:18 120 H 135/66 03/20/23 22:13 109 H 98 03/20/23 22:08 97 H 97 03/20/23 22:03 102 H 96 03/20/23 22:02 107 H 118/57 L 03/20/23 21:58 119 H 96 03/20/23 21:53 100 H 99 03/20/23 21:48 114 H 97 03/20/23 21:47 112 H 120/58 L 03/20/23 21:43 108 H 98 03/20/23 21:38 116 H 99 03/20/23 21:33 121 H 98 03/20/23 21:28 121 H 99 23 21:23 101 H 96 23 21:18 102 H 113/62 97 22/23 21:13 95 H 96 03/20/23 21:08 99 H 98 03/20/23 21:03 98 H 98 03/20/23 21:02 101 H 118/59 L 23 21:00 18 03/20/23 21:00 36.6 C 18 03/20/23 20:58 101 H 98 23 20:53 104 H 99 03/20/23 20:49 101 H 112/56 L 03/20/23 20:48 102 H 99 03/20/23 20:43 95 H 97 03/20/23 20:38 94 H 97 03/20/23 20:34 96 H 104/58 L 03/20/23 20:33 102 H 97 03/20/23 20:28 101 H 98 03/20/23 20:23 94 H 98 03/20/23 20:19 102 H 110/60 03/20/23 20:18 100 H 97 03/20/23 20:13 100 H 97 03/20/23 20:08 100 H 98 03/20/23 20:03 97 03/20/23 20:03 107 H 03/20/23 20:03 106 H 101/57 L 03/20/23 19:58 99 H 98 03/20/23 19:53 112 H 98 03/20/23 19:48 110 H 125/68 97 03/20/23 19:43 108 H 97 03/20/23 19:38 115 H 97 03/20/23 19:33 104 H 96 03/20/23 19:32 111 H 113/67 03/20/23 19:28 114 H 97 03/20/23 19:23 106 H 97 03/20/23 19:19 115 H 117/64 03/20/23 19:18 112 H 97 03/20/23 19:13 110 H 97 03/20/23 19:08 115 H 97 03/20/23 19:05 36.6 C 18 03/20/23 19:03 106 H 97 03/20/23 19:02 36.6 C 102 H 18 132/61 03/20/23 19:00 18 03/20/23 19:00 18 03/20/23 18:58 103 H 97 03/20/23 18:53 116 H 96 03/20/23 18:48 108 H 97 03/20/23 18:47 112 H 134/70 03/20/23 18:43 115 H 97 03/20/23 18:38 115 H 97 03/20/23 18:33 97 03/20/23 18:33 116 H 03/20/23 18:33 109 H 135/67 91 03/20/23 18:30 18 03/20/23 18:30 18 03/20/23 18:28 111 H 97 03/20/23 18:23 110 H 97 03/20/23 18:18 97 03/20/23 18:18 113 H 03/20/23 18:18 110 H 127/64 03/20/23 18:17 110 H 126/66 03/20/23 18:13 112 H 97 03/20/23 18:08 106 H 97 03/20/23 18:03 107 H 99 03/20/23 18:02 98 H 122/70 03/20/23 18:00 16 03/20/23 18:00 16 03/20/23 17:58 103 H 97 03/20/23 17:53 108 H 98 03/20/23 17:48 98 03/20/23 17:48 100 H 03/20/23 17:48 104 H 119/66 03/20/23 17:43 107 H 96 03/20/23 17:38 104 H 99 03/20/23 17:33 99 H 117/67 98 03/20/23 17:30 18 03/20/23 17:30 18 03/20/23 17:28 103 H 98 03/20/23 17:23 105 H 98 03/20/23 17:18 97 H 97 03/20/23 17:17 102 H 119/67 03/20/23 17:13 98 H 97 03/20/23 17:08 93 H 98 03/20/23 17:03 97 H 98 03/20/23 17:02 95 H 115/67 03/20/23 17:00 18 03/20/23 17:00 36.8 C 18 03/20/23 17:00 18 03/20/23 17:00 36.8 C 18 03/20/23 16:58 97 H 98 03/20/23 16:53 102 H 98 03/20/23 16:48 93 H 99 03/20/23 16:47 98 H 118/69 03/20/23 16:43 95 H 100 03/20/23 16:38 106 H 100 03/20/23 16:33 100 03/20/23 16:33 92 H 03/20/23 16:33 108 H 129/65 03/20/23 16:30 16 03/20/23 16:30 16 03/20/23 16:28 102 H 100 03/20/23 16:23 98 H 100 03/20/23 16:18 85 100 03/20/23 16:17 99 H 112/62 03/20/23 16:13 96 H 100 03/20/23 16:08 86 100 03/20/23 16:03 92 H 100 03/20/23 16:02 93 H 113/60 03/20/23 16:00 18 03/20/23 16:00 18 03/20/23 15:58 100 H 100 03/20/23 15:53 89 100 03/20/23 15:48 100 03/20/23 15:48 88 03/20/23 15:48 90 110/59 L 03/20/23 15:43 36.6 C 101 H 18 100 03/20/23 15:38 90 100 03/20/23 15:33 83 100 03/20/23 15:32 90 105/61 03/20/23 15:30 82 18 106/58 L 03/20/23 15:28 100 03/20/23 15:28 86 03/20/23 15:28 87 109/59 L 03/20/23 15:26 93 H 103/57 L 03/20/23 15:24 88 99/51 L 03/20/23 15:23 84 100 03/20/23 15:22 104 H 03/20/23 15:22 87 104/51 L 90 03/20/23 15:20 93 H 112/57 L 03/20/23 15:18 109 H 116/56 L 100 03/20/23 15:16 112 H 118/59 L 03/20/23 15:14 100 H 118/63 03/20/23 15:13 98 H 100 03/20/23 15:12 97 H 109/57 L 03/20/23 15:10 101 H 117/61 03/20/23 15:08 102 H 114/59 L 100 03/20/23 15:06 90 112/55 L 03/20/23 15:04 96 H 114/58 L 03/20/23 15:03 92 H 100 03/20/23 15:02 114 H 112/63 03/20/23 15:00 110 H 18 121/70 03/20/23 14:58 100 03/20/23 14:58 95 H 03/20/23 14:58 87 118/62 03/20/23 14:56 100 H 118/62 03/20/23 14:54 93 H 115/59 L 03/20/23 14:53 92 H 100 03/20/23 14:52 100 H 112/55 L 03/20/23 14:50 96 H 118/61 03/20/23 14:48 100 03/20/23 14:48 91 H 03/20/23 14:48 101 H 119/62 03/20/23 14:46 102 H 122/60 03/20/23 14:44 97 H 117/62 03/20/23 14:43 102 H 100 03/20/23 14:42 100 H 113/60 03/20/23 14:40 99 H 112/59 L 03/20/23 14:38 96 H 116/61 100 03/20/23 14:36 105 H 116/63 03/20/23 14:34 100 H 111/58 L 03/20/23 14:33 99 H 100 03/20/23 14:32 103 H 107/57 L 03/20/23 14:30 100 H 18 104/58 L 03/20/23 14:28 100 03/20/23 14:28 93 H 03/20/23 14:28 107 H 102/58 L 03/20/23 14:26 102 H 106/58 L 03/20/23 14:24 102 H 108/57 L 03/20/23 14:23 103 H 100 03/20/23 14:22 86 108/58 L 03/20/23 14:20 107 H 110/55 L 03/20/23 14:18 100 03/20/23 14:18 99 H 03/20/23 14:18 101 H 114/57 L 03/20/23 14:16 103 H 112/60 03/20/23 14:14 94 H 112/56 L 03/20/23 14:13 100 H 100 03/20/23 14:12 97 H 103/57 L 03/20/23 14:10 99 H 113/56 L 03/20/23 14:08 96 H 118/56 L 100 03/20/23 14:06 105 H 92/50 L 03/20/23 14:03 93 H 97 03/20/23 14:02 101 H 93/52 L 03/20/23 13:58 100 03/20/23 13:58 100 H 12/22/23 13:58 93 H 110/58 L 03/20/23 13:55 100 H 113/65 03/20/23 13:53 95 H 98 03/20/23 13:52 98 H 104/56 L 03/20/23 13:50 78 57/29 L 03/20/23 13:48 70 98 03/20/23 13:43 99 03/20/23 13:43 111 H 03/20/23 13:43 103 H 116/62 03/20/23 13:38 96 H 98 03/20/23 13:33 100 H 97 03/20/23 13:30 16 03/20/23 13:30 16 03/20/23 13:28 108 H 99 03/20/23 13:27 88 130/73 03/20/23 13:25 36.7 C 104 H 18 129/70 03/20/23 13:23 98 03/20/23 13:23 97 H 03/20/23 13:23 108 H 132/67 03/20/23 13:21 114 H 132/61 03/20/23 13:19 96 H 133/78 03/20/23 13:18 97 H 98 03/20/23 13:17 108 H 128/68 03/20/23 13:15 101 H 139/74 03/20/23 13:13 96 H 136/75 98 03/20/23 13:11 106 H 129/78 03/20/23 13:09 102 H 129/70 03/20/23 13:08 109 H 98 03/20/23 13:07 98 H 143/67 H 03/20/23 13:06 97 H 141/65 H 03/20/23 13:03 104 H 159/82 H 99 03/20/23 13:01 92 H 119/72 03/20/23 13:00 18 03/20/23 13:00 18 03/20/23 12:59 91 H 132/83 03/20/23 12:58 88 98 03/20/23 12:57 88 135/80 03/20/23 12:55 97 H 132/63 03/20/23 12:53 99 03/20/23 12:53 85 03/20/23 12:53 90 132/75 03/20/23 12:51 88 142/85 H 03/20/23 12:49 95 H 128/83 03/20/23 12:48 86 99 03/20/23 12:47 91 H 127/81 03/20/23 12:45 90 143/83 H 03/20/23 12:43 92 H 146/83 H 100 03/20/23 12:38 95 H 99 03/20/23 12:33 90 99 03/20/23 12:30 18 03/20/23 12:30 18 03/20/23 12:04 86 119/65 03/20/23 11:30 16 03/20/23 11:30 16 03/20/23 11:03 99 H 133/72 03/20/23 11:00 18 03/20/23 11:00 18 03/20/23 11:00 18 03/20/23 11:00 36.8 C 18 03/20/23 10:30 20 03/20/23 10:30 20 03/20/23 10:18 90 133/81 03/20/23 10:00 18 03/20/23 10:00 18 03/20/23 08:14 36.6 C 18 Room Air 03/20/23 08:03 111 H 124/79 Notes Mental Status: alert / awake / arousable Patient Amnestic to Procedure: Yes Nausea / Vomiting: adequately controlled Pain: adequately controlled Airway Patency, RR, SpO2: stable & adequate BP & HR: stable & adequate Hydration State: stable & adequate Neuraxial Anesthesia: was administered and sensory block is resolving Anesthetic Complications: no major complications apparent
--- NOTE | 2023-03-21 03:26 | Operative Report ---
PG Post Operative Report Pre & Post Diagnosis Operation Date: 03/21/23 02:00 Pre: di/di twins, GDMA2, induction of labor, failure to descend Post: same I identified the patient and participated in the time-out.: Yes Procedure Operation Date: 03/21/23 02:00 Actual Procedures Primary Low Transverse Section in LD of viable male Twin A @0202, viable male twin B @0206(Bilateral) - Anel Mckeon DO Surgeon Anel Mckeon, Certified Legal Secretary Specialist Merrill Ruby MD Estimated Blood Loss 600 Findings Consistent with Post-Op Diagnosis Specimens placentas, cord blood, cord gas Drains shannon, red tinge prior to and after section Anesthesia Type Labor Epidural Complications none Disposition Accompanied Patient To Recovery: No Disposition: L&D Indications 27yo @ 38 04/05, di/di twin gestation, GDMA2, induction of labor. section for arrest of descent. Description of Procedure Patient progressed to 9.5 cm dilation with an anterior cervical lip. Both babies with category 1 heart tracings. She practice push to the labor room, and hide good maternal pushing effort, therefore was transported to the labor and delivery operating room for delivery. Double set up was prepared due to twins. Anesthesia and pediatrics were in the room. She then pushed, however was unable to bring the head down even with good maternal pushing efforts. Asynclitic lie of the head suspected, with occiput posterior positioning. Attempts were made with pushing to rotate the head, however these were unsuccessful. Suspect baby A's proximity to baby B caused a to be unable to rotate. Patient became exhausted with pushing efforts. Baby was still too high to consider vacuum use. I discussed options with patient, including laboring down, continuing to push, proceeding to section. She requested delivery. Verbal consent was obtained for section. She was then prepared and draped in the usual sterile fashion in the supine position with a leftward tilt. Timeout was confirmed. A Pfannenstiel skin incision was made with a scalpel, and carried through to the underlying layer of fascia. Fascia was nicked at midline, and this incision was extended bilaterally. The superior aspect of the fascial incision was grasped with Joselito clamps x2, elevated off the underlying rectus abdominis muscles, and dissected sharply and bluntly. In similar fashion, the inferior aspect of the fascial incision was dissected. The rectus abdominis muscles were , and the peritoneum was entered anthony ntly digitally. This was extended bilaterally. The bladder flap was taken down carefully using Metzenbaum scissors. Using a new scalpel, a low transverse uterine incision was created. Baby A was delivered from a cephalic presentation. The head delivered, followed by shoulders and body. Spontaneous cry on the field. The cord was doubly clamped and cut, and baby A was handed off to the waiting franchise sales manager. Cord blood was obtained. The placenta for baby A was clipped with 1 plastic cord clamp. Membranes for baby B were then ruptured, clear fluid. Initial attempt was made to deliver baby B with cephalic presentation, due to difficulty bringing baby these head to the hysterotomy incision, the vacuum was applied to bring the head to the hysterotomy. This was successful, and the baby be was delivered from cephalic presentation, followed by shoulders and body. A true knot was noted in baby B's umbilical cord. Spontaneous cry in the field. The baby was handed off to the waiting franchise sales manager. The cord was doubly clamped and cut. Cord blood was obtained, and a segment was retained for cord gases. The placenta for baby B was clipped with 2 plastic cord Clamps. The placentas were delivered spontaneously intact. The uterus was exteriorized, and cleared of all clots and debris. The hysterotomy incision was reapproximated using 0 Vicryl in a running locked stitch. A second layer of the same suture was used to imbricate the incision. Posterior uterus was evaluated and normal. Additional bmxlcw-yw-[id number] sutures of 2-0 Vicryl and 0 Monocryl were used at the hysterotomy to obtain excellent hemostasis. The uterus was returned to the abdomen, and gutters were cleared of clots and debris. There were brought edges along the bladder flap, therefore Shalini hemostatic powder was used. Excellent hemostasis was observed. The fascial incision was reapproximated using 0 Vicryl in a running stitch. The subcutaneous tissue was irrigated, and reapproximated using 2-0 plain gut in a running stitch. The skin was reapproximated using 4-0 Vicryl in a running subcuticular stitch. The edward dressing was applied. The patient tolerated the procedure well, and will be taken to the recovery area in stable and good condition. I attest to the content of the Intraoperative Record and any orders documented therein. Any exceptions are noted below. OB Procedure Charges 00431
[2023-03-21] MEDS: OXYTOCIN 30 UNITS/LR 1,003 ML IV SCH ×2 (03:50→11:48)
[2023-03-21] MEDS: KETOROLAC 30 MG/ML VIAL IV PRN ×3 (05:53→17:21)
[2023-03-21] MEDS: PRENATAL VITAMIN 1 TAB PO SCH (08:34)
[2023-03-21] MEDS: DOCUSATE SODIUM 100 MG CAP PO SCH ×2 (08:34→21:37)
[2023-03-21] MEDS: SIMETHICONE 80 MG CHEW PO SCH ×4 (08:34→21:37)
[2023-03-21] MEDS: FERROUS SULFATE 325 MG TAB PO SCH (08:34)
[2023-03-21] MEDS: ONDANSETRON INJ 2 MG/ML 2 ML VIAL IV PRN ×2 (11:53→17:19)
[2023-03-21] MEDS ORDERED: diphenhydrAMINE Capsule 25 MG CAP PO PRN (20:13)
[2023-03-21] MEDS ORDERED: PROMETHAZINE HCL 25 MG in SODIUM CHLORIDE 0.9% 50 ML IV PRN (20:13)
[2023-03-21] MEDS ORDERED: KETOROLAC 30 MG/ML VIAL IV PRN (20:13)
[2023-03-21] MEDS ORDERED: ONDANSETRON INJ 2 MG/ML 2 ML VIAL IV PRN (20:13)
[2023-03-21] MEDS: IBUPROFEN 600 MG TAB PO PRN (21:37)
[2023-03-22] MEDS: oxyCODONE/ACETAMINOPHEN 5mg/325mg TAB PO PRN ×4 (00:22→15:44)
[2023-03-22] MEDS: IBUPROFEN 600 MG TAB PO PRN ×3 (06:18→15:44)
[2023-03-22 07:12] LABS: Basophils # (auto) 0.01 K/uL (0.00-0.20); Basophils % (auto) 0.1 %; Eosinophils # (auto) 0.01 K/uL (0.00-0.50); Eosinophils % (auto) 0.1 %; Hematocrit (blood only) 29.4 % (37.0-47.0); Immature Granulocytes # (auto) 0.09 K/uL (0.01-0.20); Immature Granulocytes % (auto) 0.8 %; Lymphocytes # (auto) 2.58 K/uL (1.20-3.40); Lymphocytes % (auto) 21.5 %; Mean Corpuscular Hemoglobin 31.6 pg (25.0-34.0); Mean Platelet Volume 9.3 fL (9.4-12.4); Monocytes % (auto) 5.8 %; Neutrophils # (auto) 8.61 K/uL (1.40-6.50); Neutrophils % (auto) 71.7 %; Platelet Count 200 K/uL (130-400); RDW Coefficient of Variation 14.3 % (11.5-14.5); RDW Standard Deviation 47.9 fL (36.4-46.3); Red Blood Count 3.16 M/uL (4.20-5.40)
[2023-03-22] MEDS: DOCUSATE SODIUM 100 MG CAP PO SCH (07:24)
[2023-03-22] MEDS: PRENATAL VITAMIN 1 TAB PO SCH (07:24)
[2023-03-22] MEDS: SIMETHICONE 80 MG CHEW PO SCH ×2 (07:24→11:41)
[2023-03-22] MEDS: FERROUS SULFATE 325 MG TAB PO SCH (07:24)
--- NOTE | 2023-03-22 08:20 | Obstetrical Progress Note ---
Date of Service March 22, 2023 Assessment & Plan (1) Encounter for maternal care for low transverse scar from previous delivery: continue current care plan planning discharge tomorrow morning Subjective Ambulation: ambulating normally Voiding: no voiding problems Passing Gas:: Yes Diet Tolerance:: regular diet Lochia:: Small Feeding Type:: bottle feeding pain well controlled- bottlefeeding small - moderate lochia Review of Systems All systems reviewed & are unremarkable except as noted in HPI & below Physical Exam Constitutional WD/WN, vitals as above Psychiatric A+Ox3, euthymic affect Genitourinary OB Exam Abdomen: + fundal height Fundus: + firm and + relation to umbilicus (1 below U) PAT dressing intact and dry Results & Data Vital Signs (Past 12 Hours) Vital Signs Temp Pulse Resp BP Pulse Ox O2 Del Method 03/22/23 08:00 98.1 F 96 H 16 121/74 97 Room Air 03/21/23 23:45 98.2 F 108 H 18 108/79 Room Air 03/21/23 20:30 16 96
[2023-03-22] MEDS ORDERED: bisacodyL 5 MG TABEC PO SCH (20:00)
[2023-03-23] MEDS ORDERED: bisacodyL 10 MG SUPP PR PRN (03:12)
--- NOTE | 2023-03-25 09:53 | Discharge Summary ---
Date of Service March 25, 2023 Admission HPI Per Admitting Provider 27 y/o weeks NINI: 04/03/22. Here for induction of labor. Complications with this include twin di/di. GDN on insulin, RH- . Germania received at 10/2Has been attending OB appointments regularly. Currently taking no medications. GBS, Rubella immune, BTG: O neg Contractions: none. Fluid or Blood loss: none Movement: active FHR baseline 130, moderate variability, accelerations present, decelerations absent Lab Results OB Labs: Blood Type O Negative 03/02/18 Antibody Screen NEGATIVE 03/02/18 Hemoglobin 11.4 g/dl (12.0-16.0) L 02/22/23 Hematocrit 32.3 % (37.0-47.0) L 02/22/23 Mean Corpuscular Volume 91.2 fL (80.0-100.0) 02/22/23 Platelet Count 229 K/uL (130-400) 02/22/23 OB Optional Labs: No Data to Display Labs Reviewed: Initial OB Labs 08/14/2022 Blood Type & RH o neg - 09/10/2020 Antibody Screen negative HCT/HGB 12.4/37.5 Platelets 337 Hep C IgG 13yrs+ Old NEGATIVE Pap Test 05/2020 Chlamydia NEGATIVE Gonorrhea negative Rubella immune RPR non reactive Urine Culture/[id number] organisms/mL. mixed bacterial species. HBsAg negative HIV negative MCV 86.8 Ultrasound06/27/22 Discharge Data Consultations 03/20/23 08:09 Consult Anesthesiology Stat Procedures Performed Operation Date: 03/21/23 02:00 Actual Procedures p Section in LD of [facility] Twin A @0202, [facility] twin B @0206(Bilateral) - Anel Mckeon, Hospital Course (1) Encounter for maternal care for low transverse scar from previous delivery: continue current care plan planning discharge tomorrow morning Plan Admitted for IOL for twins, delivery by section, routine postop care. Please see documentation in chart for further details. Coding Level of Care Code None Diagnoses Encounter for maternal care for low transverse scar from previous delivery O34.211
== END 2023-03-22 17:30 | disposition home or self-care (01) | DRG 788 ==
LOC: 4S1 07:50 → 4E2 03-21 06:26